=== PATIENT | male | born 1990 | race Caucasian/White ===

== ENCOUNTER 2021-04-14 23:54 | Inpatient (IN) | payer BC ==
[~2021-04-14] VITALS: Ht 177.8 cm; Wt 74.4 kg
--- NOTE | 2021-04-15 00:13 | NUR ---
[place] C/O HAVING SOB. PT WAS SEEN IN URGENT CARE. PATIENT IS ALERT AND ORIENTED X3. AMBULATORY AND SATTING AT 100% ROOM AIR. PATIENT IS PLACED ON A TELE MONITOR AND PULSE OX.
[2021-04-15] MEDS ORDERED: LORAZEPAM INJ 2 MG/ML VIAL ONE ×2 (00:18→00:36)
--- NOTE | 2021-04-15 00:20 | NUR ---
PATIENT SEIZING <1 MIN LONG, MD @ BEDSIDE. MEDICATED ORDERED. PT ON O2 4L AND SEIZURE PRECAUTIONS WERE ADMITTED.
[2021-04-15] MEDS ORDERED: LORAZEPAM INJ 2 MG/ML VIAL IM ONE (00:30)
[2021-04-15] MEDS ORDERED: IV NS 0.9% 500 ML BAG IV ONE (00:30)
[2021-04-15 00:45] LABS: BASOPHILS # (AUTO) 0.1 K/uL (0.0-0.2); BASOPHILS % (AUTO) 0.7 % (0.0-2.0); EOSINOPHILS % (AUTO) 1.8 % (0.0-6.0); HEMATOCRIT 41 % (39-51); HEMOGLOBIN 14.5 g/dL (13.5-17.5); LYMPHOCYTES # (AUTO) 3.1 K/uL (0.8-4.8); LYMPHOCYTES % (AUTO) 33.1 % (20.0-44.0); MEAN CORPUSCULAR HGB CONC 35 g/dl (31.0-36.0); MEAN CORPUSCULAR VOLUME 95 fL (80-96); MONOCYTES # (AUTO) 0.9 K/uL (0.1-1.30); MONOCYTES % (AUTO) 9.6 % (2.0-12.0); NEUTROPHILS # (AUTO) 5.2 K/uL (1.8-8.9); NEUTROPHILS % (AUTO) 54.8 % (43.0-81.0); PLATELET COUNT (AUTO) 152 K/uL (150-450); RED BLOOD CELL COUNT(AUTO) 4.35 MIL/uL (4.5-6.0); WHITE BLOOD COUNT (AUTO) 9.5 K/uL (4.3-11.0)
[2021-04-15] MEDS ORDERED: LORAZEPAM INJ 2 MG/ML VIAL IV ONE (01:00)
[2021-04-15 01:10] LABS: ALANINE AMINOTRANSFERASE 31 U/L (12-78); ALBUMIN 4.1 g/dL (3.4-5.0); ALKALINE PHOSPHATASE 116 U/L (46-116); ASPARTATE AMINOTRANSFERASE 28 U/L (15-37); BILIRUBIN,DIRECT 0.3 mg/dL (0.0-0.2); BILIRUBIN,TOTAL 1.1 mg/dL (0.2-1.0); CALCIUM, SERUM 8.4 mg/dL (8.5-10.1); CARBON DIOXIDE 21 mmol/L (21-32); CHLORIDE 87 mmol/L (98-107); CREATININE 0.9 mg/dL (0.6-1.3); GLUCOSE 115 mg/dL (74-106); POTASSIUM 4.2 mmol/L (3.5-5.1); SODIUM SERUM 121 mmol/L (136-145); TOTAL PROTEIN, SERUM 6.7 g/dL (6.4-8.2); UREA NITROGEN, BLOOD 8 mg/dL (7-18)
--- NOTE | 2021-04-15 01:14 | NUR ---
URINE COLLECTED AND SENT TO LAB
--- NOTE | 2021-04-15 01:19 | NUR ---
ARMINDA ([facility]) [phone]
[2021-04-15 02:08] LABS: BILIRUBIN,URINE NEGATIVE (NEGATIVE); COLOR,URINE YELLOW (YELLOW); LEUKOCYTE ESTERASE ,URINE NEGATIVE (NEGATIVE); NITRITE, URINE NEGATIVE (NEGATIVE); PROTEIN,URINE NEGATIVE (NEGATIVE); UGLUCOSE NEGATIVE (NEGATIVE); UROBILINOGEN,URINE 0.2 EU/dL (0.2)
--- NOTE | 2021-04-15 02:18 | NUR ---
PT AT CT.
[2021-04-15 02:25] LABS: ALCOHOL, BLOOD < 3 mg/dL (0-0)
[2021-04-15] MEDS ORDERED: IV Sodium Chloride 3% 500 ML 500 ML IV ONE ×2 (03:00→03:05)
--- NOTE | 2021-04-15 03:23 | NUR ---
CALLED HOUSE SUP FOR BED
--- NOTE | 2021-04-15 04:01 | NUR ---
RE PAGED EPIC
[2021-04-15] MEDS ORDERED: ONDANSETRON HCL/PF 4 MG/2 ML VIAL IVP PRN (05:00)
[2021-04-15] MEDS ORDERED: MAGNESIUM HYDROXIDE 30 ML UDC PO PRN (05:00)
[2021-04-15] MEDS ORDERED: ZOLPIDEM TARTRATE 5 MG TABLET PO PRN (05:00)
[2021-04-15] MEDS ORDERED: MAG HYDROX/AL HYDROX/SIMETH 30 ML UDC PO PRN (05:00)
[2021-04-15] MEDS ORDERED: Z GUARD REMEDY 2 OZ OINT TP PRN (05:00)
[2021-04-15 05:26] LABS: CALCIUM, SERUM 8.1 mg/dL (8.5-10.1); CREATININE 0.8 mg/dL (0.6-1.3); POTASSIUM 3.6 mmol/L (3.5-5.1)
--- NOTE | 2021-04-15 05:50 | NUR ---
PATIENT RESTING COMFORTABLY NO COMPLAITNS ATT HIS TIME.
--- NOTE | 2021-04-15 07:28 | NUR ---
TELE BED 312-6
[2021-04-15] MEDS ORDERED: LISI-768 PO (07:38)
[2021-04-15] MEDS ORDERED: LISD40CA PO (07:38)
--- NOTE | 2021-04-15 07:42 | NUR ---
report given to demetrius
--- NOTE | 2021-04-15 09:45 | NUR ---
CHIEF OPERATOR REFORMER ADMITTING NOTES ADMITTED A 30 Y/O MALE TO UNIT VIA GURNEY BY BRINDA SEGURA,. PT. IS ALERT /ORIENTED X 3.ABLE TO MAKE NEEDS KNOWN, NO C/O PAIN OR DISCOMFORT AT THIS TIME. PT. ORIENTED TO ROOM AND STAFF.PT. ON ROOM AIR, TOLERATING WELL. LUNGS ARE CLEAR ON LUNG AUSCULTATION. ABDOMEN SOFT AND NON DISTENDED WITH ACTIVE BOWEL SOUNDS.PT PLACED ON EXTERNAL SEPTIC TANK INSTALLER WITH CURRENT READING NSR WITH HR OF 57. NO CARDIAC DISTRESS VOICE. PATIENT WAS INSERTED WITH R HAND SALINE LOCK G=22, INTACT. NO SKIN ISSUES WAS FOUND. SAFETY AND SEIZURE PRECAUTION INITIATED. BED IN LOWEST LOCKED POSITION WITH S.RX2. CALL LIGHT AND BEDSIDE TABLE WITHIN EASY REACH. WILL CONTINUE TO MONITOR PATIENT ACCDGLY.
--- NOTE | 2021-04-15 10:08 | NUR ---
[facility] AND PER ACLS POLICY.
[2021-04-15 12:53] VITALS: BP 140/68
[2021-04-15] MEDS ORDERED: IV D5/ 0.9% NACL 1,000 ML IV PRN (13:00)
[2021-04-15 16:00] VITALS: BP 112/68
[2021-04-15 17:04] LABS: CALCIUM, SERUM 8.8 mg/dL (8.5-10.1); POTASSIUM 4.2 mmol/L (3.5-5.1); THYROID STIMULATING HORMONE 0.893 uIU/mL (0.358-3.74)
[2021-04-15] MEDS ORDERED: ACETAMINOPHEN 650 MG/SUPP.RECT RC PRN (18:00)
[2021-04-15] MEDS ORDERED: IV D5W 500 ML IV ONE (18:30)
--- NOTE | 2021-04-15 18:33 | NUR ---
PROJECT ADMINISTRATOR CLOSING NOTES PT. IS ALERT /ORIENTED X 3.ABLE TO MAKE NEEDS KNOWN, NO C/O PAIN OR DISCOMFORT AT THIS TIME.PT. ON ROOM AIR, TOLERATING WELL. LUNGS ARE CLEAR ON LUNG AUSCULTATION.PT PLACED ON EXTERNAL LABOR ARBITRATOR WITH CURRENT READING NSR WITH HR OF 57. NO CARDIAC DISTRESS VOICED. PATIENT WAS INSERTED WITH R HAND SALINE LOCK G=22, INTACT. SAFETY AND SEIZURE PRECAUTION. BED IN LOWEST LOCKED POSITION WITH S.RX2. CALL LIGHT AND BEDSIDE TABLE WITHIN EASY REACH. WILL ENDORSED PATIENT TO CLASSROOM MONITOR NURSE.
--- NOTE | 2021-04-15 19:00 | NUR ---
RN NOTES RECEIVED REPORT FROM MORNING NURSE. PATIENT IN BED A/0 X3-4 ABLE TO MAKE NEEDS KNOWN. FRIEND AT BEDSIDE. ON TELE MONITOR NORMAL SR RATE OF 65'S. WITH IV ACCESS ON R HAND G# 20 PATENT FLUSHES WELL. WITH ONGOING IVF OF D5W 500 CC BOLUS. SEIZURE PRECAUTION IN PLACE. SAFETY MEASURE IN PLACE AT ALL TIMES. HOB ELEVATED, BED ON LOWEST POSITION AND LOCKED. CALL LIGHT WITHIN REACH. WILL CLOSELY MONITOR THE PATIENT
[2021-04-15 20:00] VITALS: BP 125/73
[2021-04-15] MEDS: ACETAMINOPHEN 325 MG TABLET PO PRN (21:50)
--- NOTE | 2021-04-15 21:50 | NUR ---
RN NOTES PATIENT COMPLAINING OF BACK PAIN AND MUSCLE PAIN. PATIENT ON NPO CHARGE NURSE SALVADRO INFORMED AND STATED TO TRY TO GIVE ICE CHIPS TO CHECK IF HE CAN TOLERATE. PATIENT TOLERATED ICE CHIPS. PRN TYLENOL GIVEN. WILL CONTINUE TO MONITOR AND ASSESS THE PATIENT.
[2021-04-15 22:00] VITALS: BP 125/73
[2021-04-16] VITALS (8 sets, daily range): BP systolic 107–138; BP diastolic 50–78
[2021-04-16] MEDS: ACETAMINOPHEN 325 MG TABLET PO PRN ×2 (05:17→16:31)
--- NOTE | 2021-04-16 06:18 | NUR ---
RN NOTES PATIENT REMAINS STABLE THE WHOLE SHIFT NO SIGNIFICANT CHANGES IN HEALTH CONDITION. NO EPISODE OF SEIZURE NOTED. ALL SAFETY MEASURES IN PLACE HOB ELEVATED. BED ON LOWEST POSITION AND LOCKED. CALL LIGHT WITHIN REACH. ALL NEEDS ATTENDED PROMPTLY. ENDORSED
[2021-04-16 07:42] LABS: BASOPHILS % (AUTO) 0.2 % (0.0-2.0); EOSINOPHILS % (AUTO) 0.4 % (0.0-6.0); HEMATOCRIT 45 % (39-51); HEMOGLOBIN 16.2 g/dL (13.5-17.5); LYMPHOCYTES # (AUTO) 1.1 K/uL (0.8-4.8); LYMPHOCYTES % (AUTO) 14.2 % (20.0-44.0); MEAN CORPUSCULAR HGB CONC 36 g/dl (31.0-36.0); MEAN CORPUSCULAR VOLUME 94 fL (80-96); MONOCYTES # (AUTO) 0.7 K/uL (0.1-1.30); MONOCYTES % (AUTO) 8.9 % (2.0-12.0); NEUTROPHILS # (AUTO) 5.6 K/uL (1.8-8.9); NEUTROPHILS % (AUTO) 76.3 % (43.0-81.0); PLATELET COUNT (AUTO) 146 K/uL (150-450); RED BLOOD CELL COUNT(AUTO) 4.83 MIL/uL (4.5-6.0); WHITE BLOOD COUNT (AUTO) 7.4 K/uL (4.3-11.0)
[2021-04-16 07:54] LABS: CALCIUM, SERUM 8.9 mg/dL (8.5-10.1); MAGNESIUM 2.2 mg/dL (1.8-2.4); PHOSPHORUS 4.2 mg/dL (2.5-4.9); POTASSIUM 3.8 mmol/L (3.5-5.1)
--- NOTE | 2021-04-16 07:58 | NUR ---
RN OPENING NOTE RECEIVED PATIENT IN BED. A/O X 3-4. ON ROOM AIR, NO SOB NOTED. IN NO APPARENT DISTRESS. TELE READING SHOWS SR 60's. IV ACCESS ON R HAND #20 G, INTACT AND PATENT. SAFETY MEASURES MAINTAINED. BED IN LOWEST POSITION, BRAKES LOCKED. SIDE RAILS UP X2. SEIZURE PRECAUTION IS OBSERVED. CALL LIGHT WITHIN REACH. WILL CONTINUE PLAN OF CARE.
--- NOTE | 2021-04-16 10:43 | NUR ---
RN NOTE RECEIVED ORDER FROM CLIFFORD DE JESUS NP TO CHANGE DIET FROM NPO TO REGULAR DIET. RECEIVED ORDER AND CARRIED OUT.
[2021-04-16] MEDS: LIDOCAINE 5% (PATCH) 1 EA PATCH TP SCH (12:18)
--- NOTE | 2021-04-16 17:40 | NUR ---
RN NOTES RECEIVED ORDER FROM CLIFFORD DE JESUS NP FOR FLEXERIL 5MG X1 DOSE FOR MUSCLE RELAXANT, PER PATIENTS REQUEST. ORDER RECEIVED AND CARRIED OUT. PATIENT MADE AWARE OF ORDER, VERY APPRECIATIVE.
[2021-04-16] MEDS ORDERED: CYCLOBENZAPRINE 10 MG TABLET PO ONE (18:00)
--- NOTE | 2021-04-16 18:23 | NUR ---
RN CLOSING NOTE PATIENT IN BED,AWAKE, A/O X4. ABLE TO MAKE NEEDS KNOWN. ON ROOM AIR, BREATHING EVEN AND UNLABORED. NO SIGNS OF ACUTE DISTRESS AT THIS TIME. ON PIG CASTER, READING SR @80'S. RIGHT HAND SL G#[address], PATENT AND INTACT, WITH NO SIGNS OF INFILTRATION. PATIENT AMBULATORY WITH BRP. SEIZURE AND SAFETY MEASURES IN PLACE. BED LOCKED AND IN LOWEST POSITION, CALL LIGHT WITHIN REACH, SIDE RAILS UP X2. WILL ENDORSE TO POWER PRESS TENDER NURSE.
--- NOTE | 2021-04-16 19:59 | NUR ---
RN NOTES RECEIVED IN BED, ALERT/ORIENTED X4, ROOM AIR, SEIZURE PRECAUTION, HEPLOCK ONLY, NO DISTRESS, WILL CONTINUE TO MONITOR.
[2021-04-17 00:38] VITALS: BP 112/64
[2021-04-17] MEDS: ACETAMINOPHEN 325 MG TABLET PO PRN (02:55)
--- NOTE | 2021-04-17 06:13 | NUR ---
RN NOTES ALERT/ORIENTED X4, ROOM AIR, NO SEIZURE, BACK PAIN, TYLENOL GIVEN, MODERATE RELIEF. MONITOR SODIUM LEVEL, NO FURTHER IVF AT THIS TIME, SODIUM LEVEL SHOULD NOT INCREASE GREATER THAN 6-8 mmol/L/DAY.
--- NOTE | 2021-04-17 07:13 | NUR ---
MEDICAL TERRITORY MANAGER OPENING NOTE RECEIVED PATIENT IN BED. A/O X 3-4. PATIENT IS BREATHING EVENLY AND NONLABORED ON ROOM AIR, NO SOB NOTED. IN NO APPARENT DISTRESS. TELE READING SHOWS SR 60's. PATIENT DENIES PAIN OR DISCOMFORT AT THIS TIME. PATIENT NOTED WITH IV ACCESS ON R HAND #20 G, INTACT AND PATENT. SAFETY MEASURES MAINTAINED. BED IN LOWEST POSITION, BRAKES LOCKED. SIDE RAILS UP X2. SEIZURE PRECAUTION IS OBSERVED. CALL LIGHT WITHIN REACH. WILL CONTINUE TO MONITOR
[2021-04-17 07:19] LABS: BASOPHILS # (AUTO) 0.1 K/uL (0.0-0.2); BASOPHILS % (AUTO) 0.8 % (0.0-2.0); EOSINOPHILS % (AUTO) 0.9 % (0.0-6.0); HEMATOCRIT 47 % (39-51); HEMOGLOBIN 16.2 g/dL (13.5-17.5); LYMPHOCYTES # (AUTO) 1.5 K/uL (0.8-4.8); LYMPHOCYTES % (AUTO) 19.7 % (20.0-44.0); MEAN CORPUSCULAR HGB CONC 35 g/dl (31.0-36.0); MEAN CORPUSCULAR VOLUME 95 fL (80-96); MONOCYTES # (AUTO) 0.8 K/uL (0.1-1.30); MONOCYTES % (AUTO) 10.7 % (2.0-12.0); NEUTROPHILS # (AUTO) 5.2 K/uL (1.8-8.9); NEUTROPHILS % (AUTO) 67.9 % (43.0-81.0); PLATELET COUNT (AUTO) 159 K/uL (150-450); WHITE BLOOD COUNT (AUTO) 7.6 K/uL (4.3-11.0)
[2021-04-17 08:09] LABS: MAGNESIUM 2.3 mg/dL (1.8-2.4); POTASSIUM 4.4 mmol/L (3.5-5.1)
[2021-04-17 11:03] VITALS: BP 122/82
[2021-04-17] MEDS: LIDOCAINE 5% (PATCH) 1 EA PATCH TP SCH (11:10)
--- NOTE | 2021-04-17 12:10 | NUR ---
RN DISCAHRGE NOTE RECEIVED ORDER FOR DISCHARGE. PATIENT IS A/O X4. PATIENT IS BREATHING EVENLY AND NONLABORED ON ROOM AIR. PATIENT DOES NOT SHOW ANY SIGNS OF ACUTE DISTRESS. PATIENT DENIES PAIN OR DISCOMFORT AT THIS TIME. PATIENT WAS GIVEN DISCHARGE INSTRUCTIONS BOTH VERBALLY AND IN WRITTEN FORM. PATIENT VERBALIZED UNDERSTANDING. PATIENTS IV ACCESS WAS REMOVED CATHETER TIP INTACT, PRESSURE DRESSING APPLIED. ALL BELONGINGS ACCOUNTED FOR AND FORM SIGNED. PATIENT LEFT IN STABLE CONDITION VIA PRIVATE CAR.
== END 2021-04-17 12:05 | disposition home or self-care (01) | DRG 100 ==
LOC: ER 04-15 00:19 → TELE 04-15 08:29 → MED 04-17 07:57
PROVIDERS: ADMIT Registered Nurse; ATTEND Registered Nurse
DX: R56.9 Unspecified convulsions (principal); G92.8 Other toxic encephalopathy; E87.1 Hypo-osmolality and hyponatremia; R63.1 Polydipsia; E86.1 Hypovolemia; Z20.822 Contact with and (suspected) exposure to COVID-19; N26.9 Renal sclerosis, unspecified; J32.9 Chronic sinusitis, unspecified; F90.9 Attention-deficit hyperactivity disorder, unspecified type; T50.905A Adverse effect of unspecified drugs, medicaments and biological substances, initial encounter; F32.A Depression, unspecified; Y92.9 Unspecified place or not applicable
CPT/HCPCS: 36415; 70450-TC; 70551-TC; 71045-TC; 80048-TC; 80061-TC; 80076-TC; 82962-TC; 83735-TC; 84100-TC; 84155-TC; 84443-TC; 85025-TC; 85730-TC; 87081-TC; 93307-TC; C9803; G0378; G0480; J2060; J3490; J7042; J7060

== ENCOUNTER 2021-04-19 22:17 | Emergency (ER) | payer BC ==
[~2021-04-19] VITALS: Ht 177.8 cm; Wt 74.8 kg
[~2021-04-19 22:17] MED LIST: LISD40CA PO; LISI-768 PO
--- NOTE | 2021-04-19 23:00 | NUR ---
ALERT AND ORIENTED M BIB SELF C/O LIGHTHEADEDNESS, TIGHTNESS AND TINGLING TO R HAND, AND MILD SOB. PT STATES HAVING RECENTLY BEEN HOSPITALIZED FOR SEIZURE AND HYPONATREMIA AND FEELS LIKE THE SYMPTOMS ARE SIMILIAR AND IS WORRIED HE MAY BE HYPONATREMIC AGAIN. BREATHING IS EVEN AND UNLABORED ALL VSS MD WAS AT THE BEDSIDE FOR EVAL.
[2021-04-19 23:34] LABS: BASOPHILS % (AUTO) 0.4 % (0.0-2.0); EOSINOPHILS % (AUTO) 2.4 % (0.0-6.0); HEMATOCRIT 40 % (39-51); HEMOGLOBIN 13.8 g/dL (13.5-17.5); LYMPHOCYTES # (AUTO) 1.2 K/uL (0.8-4.8); LYMPHOCYTES % (AUTO) 22.4 % (20.0-44.0); MEAN CORPUSCULAR HGB CONC 34 g/dl (31.0-36.0); MEAN CORPUSCULAR VOLUME 95 fL (80-96); MONOCYTES # (AUTO) 0.4 K/uL (0.1-1.30); MONOCYTES % (AUTO) 6.8 % (2.0-12.0); NEUTROPHILS # (AUTO) 3.7 K/uL (1.8-8.9); PLATELET COUNT (AUTO) 176 K/uL (150-450); RED BLOOD CELL COUNT(AUTO) 4.23 MIL/uL (4.5-6.0); WHITE BLOOD COUNT (AUTO) 5.4 K/uL (4.3-11.0)
[2021-04-19 23:43] LABS: CALCIUM, SERUM 8.9 mg/dL (8.5-10.1); POTASSIUM 4.3 mmol/L (3.5-5.1)
[2021-04-19 23:49] LABS: ALBUMIN 3.9 g/dL (3.4-5.0); BILIRUBIN,TOTAL 0.6 mg/dL (0.2-1.0); TOTAL PROTEIN, SERUM 6.7 g/dL (6.4-8.2)
[2021-04-20] MEDS ORDERED: ALPR0.5T PO (01:01)
--- NOTE | 2021-04-20 01:21 | NUR ---
Patient discharged to home in stable condition. Written and verbal after care instructions given. Patient verbalizes understanding of instruction.
[2021-04-20 01:22] VITALS: BP 133/74
== END 2021-04-20 01:22 | disposition home or self-care (01) ==
LOC: ER 22:23
DX: R42 Dizziness and giddiness (principal); R74.01 Elevation of levels of liver transaminase levels; F41.9 Anxiety disorder, unspecified; J45.909 Unspecified asthma, uncomplicated; Z79.899 Other long term (current) drug therapy
CPT/HCPCS: 36415; 80053-TC; 85025-TC